=== PATIENT | female | born 1975 | race Caucasian/White ===

== ENCOUNTER 2020-06-16 01:37 | Emergency (ER) | payer OTHER ==
[~2020-06-16] VITALS: Ht 172.7 cm; Wt 64.9 kg
[2020-06-16] MEDS ORDERED: HYDROCODON-ACE1 EA10 PO (02:49)
[2020-06-16] MEDS ORDERED: CRUTCH1 EACH MISC (02:51)
--- OUTSIDE RECORDS SUMMARY | 2020-06-16 03:56 | XMS ---
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 EVandana VISIT COUNT (12 MO.) [address] [facility] HGayle 1 Uriel Campbell 1 [facility] TOTAL 4 NOTE: Visits indicate total known visits. ED/UCC VISIT TRACKING (12 MO.) 06/16/2020 01:38 [facility] [place] TYPE: Emergency COMPLAINT: - DISLOCATED KNEE 02/02/2020 12:40 [facility]. TYPE: Emergency COMPLAINT: - SOB/AMS DIAGNOSES: - SOB/AMS - Poisoning by unspecified narcotics, accidental (unintentional), initial encounter - Acute respiratory failure with hypercapnia - Somnolence - Altered mental status, unspecified - Acute respiratory failure with hypoxia - Altered Mental Status - Acute respiratory distress 10/08/2019 13:26 [facility] [place] TYPE: Emergency DIAGNOSES: - code white - Acute respiratory failure with hypoxia - Acute respiratory failure with hypercapnia 06/20/2019 10:15 [facility] [place] TYPE: Emergency DIAGNOSES: - SOB - Unspecified asthma with status asthmaticus - Other psychoactive substance use, unspecified, uncomplicated - Acute respiratory failure with hypercapnia INPATIENT VISIT TRACKING (12 MO.) 02/02/2020 14:52 [facility] TYPE: Intensive Care COMPLAINT: - SOB/AMS DIAGNOSES: - Somnolence - Acute respiratory failure with hypoxia - Altered mental status, unspecified - Acute respiratory distress - Other stimulant abuse, uncomplicated - Acute respiratory failure with hypercapnia - Poisoning by unspecified narcotics, accidental (unintentional), initial encounter 06/20/2019 10:15 [facility] TYPE: Medical Surgical DIAGNOSES: - Unspecified asthma with status asthmaticus - Acute respiratory failure with hypercapnia - Other psychoactive substance use, unspecified, uncomplicated [email or web address]
== END 2020-06-16 03:35 | disposition home or self-care (01) ==
LOC: ED 01:37
DX: S83.005A Unspecified dislocation of left patella, initial encounter (principal); X50.9XXA Other and unspecified overexertion or strenuous movements or postures, initial encounter; J45.909 Unspecified asthma, uncomplicated; Z88.2 Allergy status to sulfonamides
CPT/HCPCS: 27560; 73560; 99283-25